=== PATIENT | female | born 1980 | race Caucasian/White ===

== ENCOUNTER 2018-04-10 08:31 | Inpatient (IN) | payer BC ==
[~2018-04-10 08:31] MED LIST: Oxytocin/Normal Saline 30 UNIT/500 ML BAG IV SCH
[2018-04-10] MEDS ORDERED: Methylergonovine 0.2 MG/1 ML Amp IM PRN (09:22)
[2018-04-10] MEDS ORDERED: Acetaminophen 325 MG Tab PO PRN (09:22)
[2018-04-10] MEDS ORDERED: Sodium Chloride 0.9% 10 ML Syringe FLUSH PRN (09:22)
[2018-04-10] MEDS ORDERED: Lidocaine 1% 30 ML SDV INJECT PRN (09:22)
[2018-04-10] MEDS ORDERED: Carboprost Tromethamine 250 MCG/1 ML Amp IM PRN (09:22)
[2018-04-10] MEDS ORDERED: Misoprostol 400 MCG (4 X 100 MCG TAB) RECTAL PRN (09:22)
[2018-04-10] MEDS ORDERED: Tranexamic Acid 1,000 MG in Sodium Chloride 0.9% 100 ML IV PRN (09:22)
[2018-04-10] MEDS ORDERED: Lactated Ringers 500 ML IV ONE (09:22)
[2018-04-10] MEDS ORDERED: Ondansetron 4 MG/2 ML SDV IV PRN (09:22)
[2018-04-10] MEDS ORDERED: Bupivacaine 0.75%/D5W 2 ML Amp ONE (11:39)
[2018-04-10] MEDS ORDERED: fentaNYL 100 MCG/2 ML SDV ONE (11:39)
[2018-04-10] MEDS ORDERED: EPINEPHrine 1 MG/ML SDV ONE (11:39)
[2018-04-10] MEDS: Lactated Ringers 1,000 ML IV SCH ×5 (12:00→21:36)
--- NOTE | 2018-04-10 12:08 | PCM.SN ---
- Free Text/Narrative Note: Intrathecal. Sitting position, sterile prep and drape. 1 % lidocaine w bicarb for skinwheal to L2 L3 interspace. Introducer, 24 ga Pencan x 2. Pos CSF, neg heme, neg parasthesia. 15 mcg pf sufenta, 35 mcg pf fentanyl, 0.1 ml pf 1:1000 pf epi, 0.4 ml pf ns and 6 mg of 0.75% pf bupivacaine injected after CSF aspiration. Pt to L lateral position. Procedure time 1135 to 1210
[2018-04-10] MEDS ORDERED: fentaNYL 100 MCG/2 ML SDV IVPUSH STA (16:42)
[2018-04-10] MEDS ORDERED: ceFAZolin 2 GM in Premix Bag 1 BAG IV ONE (17:00)
[2018-04-10] MEDS ORDERED: Oxytocin/Normal Saline 60 UNIT/1,000 ML BAG ONE (17:44)
[2018-04-10] MEDS ORDERED: Citric Acid/Sodium Citrate Solution 30 ML Cup PO ONE (17:56)
[2018-04-10] MEDS ORDERED: Benzocaine/Menthol 20%-0.5% Spray 56 GM Canister TOP PRN (19:22)
[2018-04-10] MEDS ORDERED: Naloxone 2 MG/2 ML Syringe IVPUSH PRN (19:22)
[2018-04-10] MEDS ORDERED: Measles, Mumps & Rubella Vaccine 0.5 ML SDV SUBCUT ONE (19:22)
[2018-04-10] MEDS ORDERED: ePHEDrine 50 MG/ML SDV IVPUSH PRN (19:22)
[2018-04-10] MEDS ORDERED: diphenhydrAMINE 50 MG/ML SDV IVPUSH PRN (19:22)
[2018-04-10] MEDS ORDERED: Acetaminophen/oxyCODONE 325-5 MG Tab PO PRN (19:22)
[2018-04-10] MEDS ORDERED: Ketorolac 30 MG/ML SDV IVPUSH SCH (19:30)
--- NOTE | 2018-04-10 20:03 | OR ---
DATE: 04/10/2018 PROCEDURE: Primary low-transverse section. SENIOR BI DEVELOPER: Jassi Gilbert MD PREOPERATIVE DIAGNOSES: 1. A 37-year-old, 1, para 0, at 41 and 6/7 weeks' gestation. 2. Induction with unsuccessful vacuum attempt and persistent OP presentation. 3. Advanced maternal age/elderly primigravida. 4. A positive blood type. 5. Group B streptococcus negative. 6. Rubella nonimmune. POSTOPERATIVE DIAGNOSES: 1. A 37-year-old, 1, para 0, at 41 and 6/7 weeks' gestation. 2. Induction with unsuccessful vacuum attempt and persistent OP presentation. 3. Advanced maternal age/elderly primigravida. 4. A positive blood type. 5. Group B streptococcus negative. 6. Rubella nonimmune. 7. Confirming right occiput posterior presentation with a viable male infant, 7 pounds 14 ounces/3570 g, 21 inches long with scores of 8 and 9. FINDINGS: This delightful 37-year-old 1, para 0, presented at 41 and 6/7th weeks' gestation for induction of labor and was found to be in early labor. Artificial rupture of membranes was carried out. She progressed on to an active labor pattern and to complete dilation. Please see her labor notes for details. After pushing, she was found to be in an OP presentation with the baby at a 0 to +1 station, coming down to +2 with pushing. The vacuum assist was attempted, however, was unsuccessful. She was having some intermittent bradycardia. The decision was made to go to section. We had attempted to place a catheter in her bladder and drained urine to help with the descent of the baby's head; however, we were unable to do so. We did note some blood on the catheter tips. The patient was subsequently brought down to the OR and underwent spinal anesthesia with excellent results. She received Ancef 2 g IV and Bicitra orally. This was done preoperatively. She was prepped and draped in the usual sterile manner and a time-out was done in my presence. DESCRIPTION OF PROCEDURE: A surgical marker was used to tomas her intended Pfannenstiel incision site. A scalpel was used to incise the skin and the incision was then carried down to subcutaneous tissue with electrocautery to the fascia, which was incised transversely and extended laterally. The superior and inferior fascial flaps were developed with sharp and blunt dissection. The rectus was identified and divided in the midline. The peritoneum was identified and entered bluntly. The incision was extended until we had excellent visualization of the lower uterine segment. A large Jai retractor was placed without difficulty. A bladder flap was developed with sharp and blunt dissection. A stab incision was made into the lower uterine segment. This was extended bilaterally with blunt dissection. Return of clear amniotic fluid was noted. A loop of cord was noted and cleared out of the incision. The baby was noted to be in ROP position as expected. Using my right hand, I elevated the baby's head up into the incision and was able to flex the vertex elevated, then get it through the incision and extended out to deliver this viable male without difficulty. scores were 8 and 9 as noted. This viable male initially did not have a brisk respiratory effort; therefore, the cord was doubly clamped and cut, and I carried the baby over to the warmer and waiting nursery staff for further drying, stimulation, and resuscitation. Dr. Gilbert and Surgery staff collected a cord blood sample in my absence and removed the placenta. I later inspected it and found it to be complete intact with normal cord insertion and a three-vessel cord. Dr. Gilbert wiped the uterus clean and dry, and removed it from the abdominal cavity. He then grasped the uterine edges with Saenz forceps. The incision looked good and had a very small left-sided lateral extension. This was easily incorporated into our first running locking layer of 0 Vicryl with excellent results. A second imbricating layer of 0 Vicryl was placed for hemostasis and strengthening the incision. Examination showed excellent jewish of normal anatomy and the incision appeared dry. The uterus was placed back into the abdominal cavity and gutters were irrigated, aspirated, and examined and were free of all clots and no sign of active bleeding. The incision was again examined and found to be hemostatic. The retractor was removed. The fascia was then examined. The peritoneum and muscle layers felt together very nicely and were not closed with suture. The fascia was then closed with loop 0 PDS running locking suture with excellent results. Subcutaneous tissue fell together nicely. Electrocautery was used to stop any bleeding. Undermining was used to help the skin edges come together nicely and viry were used to close the skin. The patient tolerated the procedure well. Pitocin is infusing per protocol and the uterus is firm. There were no intraoperative complications. ESTIMATED BLOOD LOSS: 500 mL. Once the baby's head was delivered, the patient did start making urine. She was noted to have over 50 mL of blood. She at first was noted to have hematuria; however, this was clearing by the time the case was ending. The patient was transferred to the recovery room in good condition, and as noted, there were no intraoperative complications. We will continue to follow her closely with postop and routines. [facility] /[id number]
--- NOTE | 2018-04-10 20:32 | HP ---
REASON FOR ADMISSION: Induction of labor. HISTORY OF PRESENT ILLNESS: This delightful 37-year-old, 1, para 0, presented at 41 and 6/7 weeks' gestation for induction of labor for post-term and was actually found to have onset of spontaneous labor and contractions. She was having mild contractions about every 2 to 4 minutes. She had had some mucus discharge, but no vaginal bleeding or fluid leakage. The baby had been active. She had had no nausea or vomiting. She denied any visual changes, headaches, right upper quadrant pain, or increasing edema. Her care is reviewed and had been done at the clinic with me and she has been very compliant with her visits. Her blood type is A positive. Her antibody screen was negative. Baseline hemoglobin was 12.3 with rechecks of 11.7 and 11.3. Serial platelet counts were 275, 273, and 227. Rubella was nonimmune. Hepatitis B surface antigen nonreactive. HIV nonreactive. Chlamydia and GC testing was negative. TSH within normal limits. Hepatitis C antibody nonreactive. Wet prep negative. One-hour glucose screen was normal at 122. Her quad screen was normal. Her group B strep was negative. Her LMP is based on ultrasound dating at 9-1/2 weeks' gestation. This is consistent with her estimated date of conception, her screening ultrasound, and very close to her LMP using her long cycle days in an nicolás on her phone. They do not know the gender of their baby. Her screening ultrasound was within normal limits. They elected not to have any genetic testing other than her quad screen in regard to her advanced maternal age. She has been very relying with her visits. Her post date testing included NSTs weekly and a biophysical profile scoring 10/10 this past week. Her mild anemia was treated with iron supplementation, vitamin C, and iron rich foods. PAST OB HISTORY: Otherwise, noncontributory. PAST MEDICAL HISTORY: Unremarkable. She had a head injury at age 14. Had cervical dysplasia with a prior LEEP. Has a history of migraines without aura. Had an ACL repair in one of her knees. Prior wisdom tooth/oral surgery. ALLERGIES: Tree nuts only. No known drug allergies. MEDICATIONS: 1. vitamins daily. 2. Iron supplementation with vitamin C is noted. FAMILY HISTORY: Positive for cancer, heart attack, irritable bowel syndrome, and ulcerative colitis. Please see her notes for details. SOCIAL HISTORY: Moved here from [place] in October of 2015. She is to her , Ethan. He works at a [employer], and she is from the [facility]. 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 She is a nonsmoker. No history of alcohol abuse. She does drink socially when she is not . She has no history of drug abuse. This is their first child together and they are delighted to be . They are Buddhist. REVIEW OF SYSTEMS: Unremarkable. She has had a Tdap during this and a flu shot. She has a distant history of chickenpox. PHYSICAL EXAMINATION: Vital Signs: Her blood pressure on arrival was mildly elevated, but has subsequently normalized. She has not had a diagnosis of preeclampsia. It was 139/88 with a pulse of 78. She was afebrile. Please see the graphic note for details. HEENT: Negative. Lungs: Clear. Heart: Sounds regular. Abdomen: Gravid. Pelvic: Cervix was 5 cm dilated, 90% effaced, bag of quintero intact. Artificial rupture of membranes was carried out with clear fluid. Extremities: Ankles had only a trace of edema. Her NST on admit showed a baseline heart rate of 125 with good variability present and accelerations present. No worrisome decelerations were seen. Does meet criteria for reactive and reassuring. Does have contractions tracing every 1 to 2 minutes. LABORATORY DATA: Lab work shows a white count of 13.5, hemoglobin of 11.6, platelet count of 163. IMPRESSION: 1. A 37-year-old, 1, para 0, at 41 and 6/7 weeks' gestation, admitted with mild contractions and artificial rupture of membranes for induction of labor post term . 2. Reactive nonstress test, reassuring status. 3. Advanced maternal age/elderly primigravida. 4. A positive blood type. 5. Group B streptococcus negative. 6. Rubella nonimmune. 7. Nonsmoker. PLAN: The plan was to proceed with routine labor admission. This patient did progress on to an active labor program and subsequently had an intrathecal placed. She progressed to complete dilation, was noted to be in an OP position. The patient pushed without much progress and had a maternal exhaustion and was having some intermittent bradycardia. Was subsequently made the decision to go to a vacuum extraction attempt. After review with the patient and staff, we did elect to place the low-profile cup as the baby was in OP position facing slightly to the ROP position with the anterior fontanelle between the 1 and 2 o'clock position. The low-profile cup was easily placed; however, after during the first contraction, it did slip slightly with pulling, therefore, I elected to put a regular vacuum cup on. This cup was uncomfortable with the patient and did pop off. Therefore, I did place the low-profile vacuum again as the vacuum placement had been on for a total of 9 minutes at that time with 1 pop-off. The low-profile was easily placed and we kept it on with multiple contractions; however, we were not making significant progress. We had 1 more pop-off, the bradycardia was noted with slow recovery. Due to the lack of significant progress, caput formation and the baby remaining in a persistent OP position with 2 pop offs noted, I did elect to remove the vacuum and not proceed with further attempt as we were not making significant progress with the vacuum. This baby remains in a persistent OP position with no significant progress with a vacuum assist. Intermittent bradycardias noted. I have discussed this with the patient and her family and we proceed onto primary low-transverse section. I have reviewed the alternatives, risks, and benefits of the procedure. Risks included, but were not limited to, infection and the need of antibiotics, and possible allergic reaction to them and their use and risks, possible hemorrhage and the need for blood transfusion with its inherent risks, the risk of a blood clot, DVT, PE, and the use of NATHALIE stockings, SCDs, early ambulation, etc., catheterization and possible UTI, maternal injury, etc. We will plan on spinal anesthesia with a Pfannenstiel incision. , Ethan, is planning on being there as a support person. We will hope to allow skin to skin in the OR if possible if the baby is doing well. Staff is in agreement with this plan. We will plan on Ancef 2 g IV for preop antibiotic. Further management pending her clinical course. [facility] /[id number]
[2018-04-10] MEDS: Simethicone 80 MG Tab.Chew PO SCH (23:49)
[2018-04-11] MEDS: ceFAZolin 1 GM in Premix Bag 1 BAG IV SCH ×3 (02:24→14:18)
[2018-04-11] MEDS: Ketorolac 30 MG/ML SDV IVPUSH SCH ×3 (02:24→15:10)
[2018-04-11] MEDS: Lactated Ringers 1,000 ML IV SCH (05:33)
[2018-04-11] MEDS: Simethicone 80 MG Tab.Chew PO SCH ×4 (08:45→21:45)
[2018-04-11] MEDS: Docusate Sodium 100 MG Cap PO PRN ×2 (08:45→21:46)
--- NOTE | 2018-04-11 10:06 | PCM.PNPP ---
- General Info Date of Service: 04/11/18 (Post-op day #1) Admission Dx/Problem (Free Text): PLTCS yesterday for unsuccessful vacuum attempt for persistent OP position uncomplicted surgery. doing well spinal resolved. eating ok. see nursing notes. good urine output. hematuria totally cleared. VSS no fever. temp 98.6, RR 18, pulse 55, BP down to 108/60, higher BP readings resolved when company/visitors left last night. exam unremarkable. nursing Subjective Update: feels well. no new concerns. Functional Status: Reports: Pain Controlled, Tolerating Diet Pain Score: 2 - Review of Systems General: Reports: No Symptoms HEENT: Reports: No Symptoms Pulmonary: Reports: No Symptoms Cardiovascular: Reports: No Symptoms Gastrointestinal: Reports: No Symptoms Musculoskeletal: Reports: No Symptoms Skin: Reports: No Symptoms Neurological: Reports: No Symptoms, Other (anesthesia resolved) Psychiatric: Reports: No Symptoms - General Info Date of Service: 04/11/18 - Patient Data Vital Signs - Most Recent: Last Vital Signs Temp 98.6 F 04/11/18 04:00 Pulse 55 L 04/11/18 04:00 Resp 18 04/11/18 04:00 BP 108/60 04/11/18 04:00 Pulse Ox 98 04/10/18 19:35 Weight - Most Recent: 158 lb I&O - Last 24 Hours: Intake & Output 04/10/18 04/11/18 04/11/18 22:59 06:59 14:59 Output Total 2825 Balance -2825 Lab Results - Last 24 Hours: Laboratory Results - last 24 hr 04/11/18 Range/Units 05:50 WBC 22.9 H (5.0-10.0) 10^3/uL RBC 3.27 L (4.2-5.4) 10^6/uL Hgb 9.9 L D (12.0-16.0) g/dL Hct 29.8 L (37.0-47.0) % MCV 91.1 (80-100) fL MCH 30.3 (27.0-34.0) pg MCHC 33.2 (33.0-35.0) g/dL Plt Count 142 L (150-450) 10^3/uL Med Orders - Current: Current Medications Acetaminophen (Tylenol) 650 mg PO Q4H PRN PRN Reason: Pain (Mild 1-3) and fever Benzocaine/Menthol (Dermoplast Pain Relief Dana) 0 gm TOP Q4H PRN PRN Reason: Hemorrhoids Last Admin: 04/11/18 08:45 Dose: 1 spray Carboprost Tromethamine (Hemabate Ds) 250 mcg IM ASDIRECTED PRN PRN Reason: HEMORRHAGE Diphenhydramine HCl (Benadryl) 25 mg IVPUSH Q6H PRN PRN Reason: Itching or Nausea Docusate Sodium (Colace) 100 mg PO Q12H PRN PRN Reason: Constipation Last Admin: 04/11/18 08:45 Dose: 100 mg Ephedrine Sulfate (Ephedrine Sulfate) 5 mg IVPUSH SEECOMMENT PRN PRN Reason: Other Lactated Ringer's (Ringers, Lactated) 1,000 mls @ 125 mls/hr IV ASDIRECTED JOSH Last Admin: 04/11/18 05:33 Dose: 125 mls/hr Oxytocin/Sodium Chloride (Pitocin In Ns 30 Unit/500 Ml) 30 unit in 500 mls @ 2 mls/hr IV TITRATE JOSH; Protocol Last Titration: 04/10/18 21:15 Dose: 0 mls/hr Tranexamic Acid 1,000 mg/ (Sodium Chloride) 110 mls @ 660 mls/hr IV ONETIME PRN PRN Reason: Bleeding Cefazolin Sodium/Dextrose 1 gm (/ Premix) 50 mls @ 100 mls/hr IV Q8HR [facility] Stop: 04/11/18 14:29 Last Infusion: 04/11/18 06:15 Dose: Infused Ibuprofen (Motrin) 800 mg PO Q8H PRN PRN Reason: mild pain or fever Ketorolac Tromethamine (Toradol) 15 mg IVPUSH Q6H [facility] Stop: 04/11/18 15:01 Last Admin: 04/11/18 08:42 Dose: 15 mg Lidocaine HCl (Xylocaine-Mpf 1%) 30 ml INJECT ASDIRECTED PRN PRN Reason: Perineal Repair Last Admin: 04/10/18 17:15 Dose: 30 ml Methylergonovine Maleate (Methergine) 0.2 mg IM ASDIRECTED PRN PRN Reason: Hemorrhage Misoprostol (Cytotec) 800 mcg RECTAL ASDIRECTED PRN PRN Reason: Hemorrhage Naloxone HCl (Narcan) 0.1 mg IVPUSH SEECOMMENT PRN PRN Reason: Respiratory Depression Ondansetron HCl (Zofran) 4 mg IV Q4H PRN PRN Reason: Nausea/Vomiting Last Admin: 04/10/18 11:38 Dose: 4 mg Oxycodone/Acetaminophen (Percocet 325-5 Mg) 1 tab PO Q4H PRN PRN Reason: Pain (moderate 4-6) Oxycodone/Acetaminophen (Percocet 325-5 Mg) 2 tab PO Q4H PRN PRN Reason: Pain (moderate 4-6) Prenat Multivit/Vance/Iron/Folic Ac ( Plus Iron) 1 each PO WITHBREAKFAST JOSH Simethicone (Simethicone) 160 mg PO QID JOSH Last Admin: 04/11/18 08:45 Dose: 160 mg Sodium Chloride (Saline Flush) 10 ml FLUSH ASDIRECTED PRN PRN Reason: Keep Vein Open Discontinued Medications Bupivacaine HCl/Dextrose (Marcaine 0.75% Spinal) Confirm Administered Dose 2 ml .ROUTE .STK-MED ONE Stop: 04/10/18 11:40 Last Admin: 04/10/18 19:29 Dose: Not Given Citric Acid/Sodium Citrate (Bicitra Solution) 30 ml PO ONETIME ONE Stop: 04/10/18 17:57 Last Admin: 04/10/18 21:08 Dose: 30 ml Epinephrine HCl (Adrenalin) Confirm Administered Dose 1 mg .ROUTE .STK-MED ONE Stop: 04/10/18 11:40 Last Admin: 04/10/18 19:30 Dose: Not Given Fentanyl (Sublimaze) Confirm Administered Dose 100 mcg .ROUTE .STK-MED ONE Stop: 04/10/18 11:40 Last Admin: 04/10/18 19:28 Dose: Not Given Fentanyl (Sublimaze) 50 mcg IVPUSH ONETIME STA Stop: 04/10/18 16:43 Last Admin: 04/10/18 16:51 Dose: 50 mcg Lactated Ringer's (Ringers, Lactated) 500 mls @ 500 mls/hr IV .BOLUS ONE Stop: 04/10/18 10:21 Last Admin: 04/10/18 11:30 Dose: 500 mls/hr Cefazolin Sodium/Dextrose (Ancef) Confirm Administered Dose 100 mls @ as directed .ROUTE .STK-MED ONE Stop: 04/10/18 17:45 Oxytocin/Sodium Chloride (Pitocin In Ns 30 Unit/500 Ml) Confirm Administered Dose 60 unit in 1,000 mls @ as directed .ROUTE .STK-MED ONE Stop: 04/10/18 17:45 Cefazolin Sodium/Dextrose 2 gm (/ Premix) 50 mls @ 100 mls/hr IV ONETIME ONE Stop: 04/10/18 17:29 Last Admin: 04/10/18 18:17 Dose: 100 mls/hr Ketorolac Tromethamine (Toradol) 15 mg IVPUSH Q6H JOSH Stop: 04/11/18 07:31 Measles/Mumps/Rubella Vaccine Live (M-M-R Ii Vaccine) 0.5 ml SUBCUT .ONCE ONE Stop: 04/10/18 19:23 Sodium Bicarbonate (Sodium Bicarbonate 4.2%) Confirm Administered Dose 5 meq .ROUTE .STK-MED ONE Stop: 04/10/18 11:41 Last Admin: 04/10/18 19:28 Dose: Not Given Sufentanil Citrate (Sufenta) Confirm Administered Dose 50 mcg .ROUTE .STK-MED ONE Stop: 04/10/18 11:40 Last Admin: 04/10/18 19:28 Dose: Not Given - Infant Interaction Infant Disposition, : Cecil in Room with Family Interaction: Holding Infant Other Infant Interaction: bonding well with both parents Feeding: Breastfed ; Nursed Well Support Person: - Recovery Exam Fundal Tone: Firm Fundal Level: 2 Fingerbreadths Below Umbilicus Fundal Placement: Midline Lochia Amount: Small Lochia Color: Rubra/Red Perineum Description: Edematous Episiotomy/Laceration: None Bladder Status: Indwelling Catheter in Place Urinary Elimination: Indwelling Catheter - Exam General: Alert, Oriented HEENT: Pupils Equal Lungs: Normal Respiratory Effort Extremities: Normal Inspection Skin: Intact Wound/Incisions: Dressing Dry and Intact Psy/Mental Status: Alert, Normal Affect, Normal Mood Physical Findings Comment:: Labs: - Problem List & Annotations (1) Post term at 42 weeks gestation SNOMED Code(s): 017969022 Code(s): O48.0 - POST-TERM ; Z3A.42 - 42 WEEKS GESTATION OF Status: Acute Current Visit: Yes (2) Post term , delivered SNOMED Code(s): 750948727, 945530461 Code(s): O48.0 - POST-TERM Status: Acute Current Visit: Yes (3) delivery delivered SNOMED Code(s): 607037166 Code(s): O82 - ENCOUNTER FOR DELIVERY WITHOUT INDICATION Status: Acute Current Visit: Yes (4) Blood type A+ SNOMED Code(s): 880923250 Code(s): Z67.10 - TYPE A BLOOD, RH POSITIVE Status: Acute Current Visit: Yes (5) Group B Streptococcus not isolated SNOMED Code(s): 075908311 Code(s): PNE4128 - Status: Acute Current Visit: Yes (6) Rubella non-immune status, antepartum SNOMED Code(s): 658644121 Code(s): O99.89 - OTH DISEASES AND CONDITIONS COMPL PREG/CHLDBRTH; Z28.3 - UNDERIMMUNIZATION STATUS Status: Acute Current Visit: Yes (7) AMA (advanced maternal age) primigravida 35+ SNOMED Code(s): 20959259, 229652969 Code(s): O09.519 - SUPERVISION OF ELDERLY PRIMIGRAVIDA, UNSPECIFIED TRIMESTER Status: Acute Current Visit: Yes - Problem List Review Problem List Initiated/Reviewed/Updated: Yes - My Orders Last 24 Hours: My Active Orders 04/10/18 09:22 Patient Status [ADT] Routine Notify Provider Vital Signs OB [RC] ASDIRECTED Up ad Tabitha [RC] ASDIRECTED Vital Signs [RC] 04,08,12,16,20,00,04 Acetaminophen [Tylenol] 650 mg PO Q4H PRN Carboprost Tromethamine [Hemabate DS] 250 mcg IM ASDIRECTED PRN Lidocaine 1% [Xylocaine-MPF 1%] 30 ml INJECT ASDIRECTED PRN Methylergonovine [Methergine] 0.2 mg IM ASDIRECTED PRN Misoprostol [Cytotec] 800 mcg RECTAL ASDIRECTED PRN Ondansetron [Zofran] 4 mg IV Q4H PRN Sodium Chloride 0.9% [Saline Flush] 10 ml FLUSH ASDIRECTED PRN Tranexamic Acid [Cyklokapron] 1,000 mg Sodium Chloride 0.9% [Normal Saline] 100 ml IV ONETIME Saline Lock Insert [OM.PC] Routine Resuscitation Status Routine 04/10/18 09:26 Vaginal Exam [RC] PRN Peripheral IV Insertion Adult [OM.PC] Urgent 04/10/18 09:32 Peripheral IV Care [RC] 08,20 04/10/18 17:56 Schedule Procedure [COMM] Urgent 04/10/18 19:22 Bedrest [RC] ASDIRECTED Communication Order [RC] PER UNIT ROUTINE Communication Order [RC] PER UNIT ROUTINE Communication Order [RC] Per Unit Routine RT Incentive Spirometry [RC] Q2HWA Urinary Catheter Removal [RC] Per Unit Routine Acetaminophen/oxyCODONE [Percocet 325-5 MG] 1 tab PO Q4H PRN Acetaminophen/oxyCODONE [Percocet 325-5 MG] 2 tab PO Q4H PRN Benzocaine/Menthol [Dermoplast Pain Relief Dana] See Dose Instructions TOP Q4H PRN Docusate Sodium [Colace] 100 mg PO Q12H PRN Ibuprofen [Motrin] 800 mg PO Q8H PRN Naloxone [Narcan] 0.1 mg IVPUSH SEECOMMENT PRN diphenhydrAMINE [Benadryl] 25 mg IVPUSH Q6H PRN ePHEDrine [ePHEDrine Sulfate] 5 mg IVPUSH SEECOMMENT PRN Antiembolic Hose [OM.PC] Per Unit Routine Assess Lochia [WOMSER] Per Unit Routine Assess Uterine Involution [WOMSER] Per Unit Routine Breast Pump [WOMSER] Per Unit Routine Ice Therapy [OM.PC] Routine Sequential Compression Device [OM.PC] Per Unit Routine 04/10/18 19:23 Intake and Output [RC] Q8H 04/10/18 19:24 Heat Therapy [OM.PC] Per Unit Routine 04/10/18 19:27 Consult to Certified Physician Assistant [CONS] Routine 04/10/18 19:29 Notify Provider Intake and Out [RC] ASDIRECTED 04/10/18 21:00 Simethicone 160 mg PO QID 04/11/18 02:00 ceFAZolin [Ancef] 1 gm Premix Bag 1 bag IV Q8HR 04/11/18 03:00 Ketorolac [Toradol] 15 mg IVPUSH Q6H 04/12/18 08:00 Vit with Ca/FA/Iron [ Plus Iron] 1 each PO WITHBREAKFAST 04/13/18 05:11 CBC W/O DIFF,HEMOGRAM [HEME] AM - Plan Plan:: Plan: continue current PP/PO cares and orders. finish Ancef today CBC Friday watch VS MMR likely home Friday. Quigley out today. ambulate. all questions answered. [facility]mb
[2018-04-11] MEDS: Acetaminophen/oxyCODONE 325-5 MG Tab PO PRN ×2 (17:20→21:46)
[2018-04-11] MEDS: Ibuprofen 800 MG Tab PO PRN (23:00)
[2018-04-12] MEDS: Acetaminophen/oxyCODONE 325-5 MG Tab PO PRN ×6 (01:49→22:52)
[2018-04-12] MEDS ORDERED: SUMATRIPTAN 100 MG PO ONE (05:57)
[2018-04-12] MEDS: Ibuprofen 800 MG Tab PO PRN ×2 (07:13→18:31)
[2018-04-12] MEDS: Simethicone 80 MG Tab.Chew PO SCH ×4 (09:28→20:39)
[2018-04-12] MEDS: Prenatal Multivitamin with Calcium/Folic Acid/Iron Tab PO SCH (09:28)
[2018-04-12] MEDS: Docusate Sodium 100 MG Cap PO PRN ×2 (09:29→20:39)
--- NOTE | 2018-04-12 10:59 | PCM.PNPP ---
- General Info Date of Service: 04/12/18 (Post-op day #2) Admission Dx/Problem (Free Text): [facility] yesterday for unsuccessful vacuum attempt for persistent OP position uncomplicted surgery. doing well spinal resolved. eating ok. see nursing notes. good urine output. hematuria totally cleared. VSS no fever. temp 98.6, RR 18, pulse 55, BP down to 108/60, higher BP readings resolved when company/visitors left last night. exam unremarkable. nursing Subjective Update: feels well, MUCH better today. no new concerns. yee out, voiding very well migraine last night, resolved with percocet. nursing well. passing gas. No BM yet. Functional Status: Reports: Pain Controlled, Tolerating Diet, Ambulating, Urinating - Review of Systems General: Reports: No Symptoms HEENT: Reports: No Symptoms Pulmonary: Reports: No Symptoms Cardiovascular: Reports: No Symptoms Gastrointestinal: Reports: Flatus, Other (bloating) Genitourinary: Reports: No Symptoms Musculoskeletal: Reports: No Symptoms Skin: Reports: No Symptoms Neurological: Reports: No Symptoms Psychiatric: Reports: No Symptoms - General Info Date of Service: 04/12/18 - Patient Data Vital Signs - Most Recent: Last Vital Signs Temp 98.4 F 04/12/18 08:00 Pulse 73 04/12/18 08:00 Resp 16 04/12/18 08:00 BP 143/71 H 04/12/18 08:00 Pulse Ox 100 04/12/18 08:00 Weight - Most Recent: 158 lb I&O - Last 24 Hours: Intake & Output 04/11/18 04/12/18 04/12/18 22:59 06:59 14:59 Intake Total 1500 Output Total 2100 3000 Balance -2100 -1500 Med Orders - Current: Current Medications Acetaminophen (Tylenol) 650 mg PO Q4H PRN PRN Reason: Pain (Mild 1-3) and fever Benzocaine/Menthol (Dermoplast Pain Relief [place]) 0 gm TOP Q4H PRN PRN Reason: Hemorrhoids Last Admin: 04/11/18 08:45 Dose: 1 spray Carboprost Tromethamine (Hemabate Ds) 250 mcg IM ASDIRECTED PRN PRN Reason: HEMORRHAGE Diphenhydramine HCl (Benadryl) 25 mg IVPUSH Q6H PRN PRN Reason: Itching or Nausea Docusate Sodium (Colace) 100 mg PO Q12H PRN PRN Reason: Constipation Last Admin: 04/12/18 09:29 Dose: 100 mg Ephedrine Sulfate (Ephedrine Sulfate) 5 mg IVPUSH SEECOMMENT PRN PRN Reason: Other Lactated Ringer's (Ringers, Lactated) 1,000 mls @ 125 mls/hr IV ASDIRECTED JOSH Last Admin: 04/11/18 05:33 Dose: 125 mls/hr Oxytocin/Sodium Chloride (Pitocin In Ns 30 Unit/500 Ml) 30 unit in 500 mls @ 2 mls/hr IV TITRATE JOSH; Protocol Last Titration: 04/10/18 21:15 Dose: 0 mls/hr Tranexamic Acid 1,000 mg/ (Sodium Chloride) 110 mls @ 660 mls/hr IV ONETIME PRN PRN Reason: Bleeding Ibuprofen (Motrin) 800 mg PO Q8H PRN PRN Reason: mild pain or fever Last Admin: 04/12/18 07:13 Dose: 800 mg Lidocaine HCl (Xylocaine-Mpf 1%) 30 ml INJECT ASDIRECTED PRN PRN Reason: Perineal Repair Last Admin: 04/10/18 17:15 Dose: 30 ml Methylergonovine Maleate (Methergine) 0.2 mg IM ASDIRECTED PRN PRN Reason: Hemorrhage Misoprostol (Cytotec) 800 mcg RECTAL ASDIRECTED PRN PRN Reason: Hemorrhage Naloxone HCl (Narcan) 0.1 mg IVPUSH SEECOMMENT PRN PRN Reason: Respiratory Depression Ondansetron HCl (Zofran) 4 mg IV Q4H PRN PRN Reason: Nausea/Vomiting Last Admin: 04/10/18 11:38 Dose: 4 mg Oxycodone/Acetaminophen (Percocet 325-5 Mg) 1 tab PO Q4H PRN PRN Reason: Pain (moderate 4-6) Oxycodone/Acetaminophen (Percocet 325-5 Mg) 2 tab PO Q4H PRN PRN Reason: Pain (moderate 4-6) Last Admin: 04/12/18 06:28 Dose: 2 tab Prenat Multivit/[place]/Iron/Folic Ac ( Plus Iron) 1 each PO WITHBREAKFAST JOSH Last Admin: 04/12/18 09:28 Dose: 1 each Simethicone (Simethicone) 160 mg PO QID JOSH Last Admin: 04/12/18 09:28 Dose: 160 mg Sodium Chloride (Saline Flush) 10 ml FLUSH ASDIRECTED PRN PRN Reason: Keep Vein Open Discontinued Medications Bupivacaine HCl/Dextrose (Marcaine 0.75% Spinal) Confirm Administered Dose 2 ml .ROUTE .STK-MED ONE Stop: 04/10/18 11:40 Last Admin: 04/10/18 19:29 Dose: Not Given Citric Acid/Sodium Citrate (Bicitra Solution) 30 ml PO ONETIME ONE Stop: 04/10/18 17:57 Last Admin: 04/10/18 21:08 Dose: 30 ml Epinephrine HCl (Adrenalin) Confirm Administered Dose 1 mg .ROUTE .STK-MED ONE Stop: 04/10/18 11:40 Last Admin: 04/10/18 19:30 Dose: Not Given Fentanyl (Sublimaze) Confirm Administered Dose 100 mcg .ROUTE .STK-MED ONE Stop: 04/10/18 11:40 Last Admin: 04/10/18 19:28 Dose: Not Given Fentanyl (Sublimaze) 50 mcg IVPUSH ONETIME STA Stop: 04/10/18 16:43 Last Admin: 04/10/18 16:51 Dose: 50 mcg Lactated Ringer's (Ringers, Lactated) 500 mls @ 500 mls/hr IV .BOLUS ONE Stop: 04/10/18 10:21 Last Admin: 04/10/18 11:30 Dose: 500 mls/hr Cefazolin Sodium/Dextrose (Ancef) Confirm Administered Dose 100 mls @ as directed .ROUTE .STK-MED ONE Stop: 04/10/18 17:45 Oxytocin/Sodium Chloride (Pitocin In Ns 30 Unit/500 Ml) Confirm Administered Dose 60 unit in 1,000 mls @ as directed .ROUTE .STK-MED ONE Stop: 04/10/18 17:45 Cefazolin Sodium/Dextrose 2 gm (/ Premix) 50 mls @ 100 mls/hr IV ONETIME ONE Stop: 04/10/18 17:29 Last Admin: 04/10/18 18:17 Dose: 100 mls/hr Cefazolin Sodium/Dextrose 1 gm (/ Premix) 50 mls @ 100 mls/hr IV Q8HR JOSH Stop: 04/11/18 14:29 Last Admin: 04/11/18 14:18 Dose: 100 mls/hr Ketorolac Tromethamine (Toradol) 15 mg IVPUSH Q6H [facility] Stop: 04/11/18 07:31 Last Admin: 04/11/18 17:35 Dose: Not Given Ketorolac Tromethamine (Toradol) 15 mg IVPUSH Q6H JOSH Stop: 04/11/18 15:01 Last Admin: 04/11/18 15:10 Dose: 15 mg Measles/Mumps/Rubella Vaccine Live (M-M-R Ii Vaccine) 0.5 ml SUBCUT .ONCE ONE Stop: 04/10/18 19:23 Last Admin: 04/11/18 17:15 Dose: 0.5 ml Patient's Own Medication 1 Each Sumatriptan 100 Mg Tab 0.25 each PO Q1H ONE Stop: 04/12/18 05:58 Sodium Bicarbonate (Sodium Bicarbonate 4.2%) Confirm Administered Dose 5 meq .ROUTE .STK-MED ONE Stop: 04/10/18 11:41 Last Admin: 04/10/18 19:28 Dose: Not Given Sufentanil Citrate (Sufenta) Confirm Administered Dose 50 mcg .ROUTE .STK-MED ONE Stop: 04/10/18 11:40 Last Admin: 04/10/18 19:28 Dose: Not Given - Interaction Disposition, : in Room with Family Infant Interaction: Holding Infant Other Interaction: bonding well with both parents Infant Feeding: Breastfed Infant; Nursed Well Support Person: , Other (see below) (grandparents from both sides in frequently) - Recovery Exam Fundal Tone: Firm Fundal Level: 2 Fingerbreadths Above Umbilicus Fundal Placement: Midline Lochia Amount: Small Lochia Color: Rubra/Red Perineum Description: Intact, Minimal Bruising/Swelling Episiotomy/Laceration: None Bladder Status: Voiding Urinary Elimination: Voided Other Urinary Elimination, : due to void - Exam General: Alert, Oriented HEENT: Pupils Equal Neck: Supple Lungs: Normal Respiratory Effort Cardiovascular: Regular Rate GI/Abdominal Exam: Soft, Distended (slight,mild) Extremities: Normal Inspection, Non-Tender, No Pedal Edema Skin: Warm, Dry, Intact Wound/Incisions: Dressing Dry and Intact Neurological: No New Focal Deficit Psy/Mental Status: Alert, Normal Affect, Normal Mood - Problem List & Annotations (1) Post term at 42 weeks gestation SNOMED Code(s): 795480589 Code(s): O48.0 - POST-TERM ; Z3A.42 - 42 WEEKS GESTATION OF Status: Acute Current Visit: Yes (2) Post term , delivered SNOMED Code(s): 196569062, 663338229 Code(s): O48.0 - POST-TERM Status: Acute Current Visit: Yes (3) delivery delivered SNOMED Code(s): 127133145 Code(s): O82 - ENCOUNTER FOR DELIVERY WITHOUT INDICATION Status: Acute Current Visit: Yes (4) Blood type A+ SNOMED Code(s): 319909537 Code(s): Z67.10 - TYPE A BLOOD, RH POSITIVE Status: Acute Current Visit: Yes (5) Group B Streptococcus not isolated SNOMED Code(s): 295373890 Code(s): KLM6099 - Status: Acute Current Visit: Yes (6) Rubella non-immune status, antepartum SNOMED Code(s): 976426401 Code(s): O99.89 - OTH DISEASES AND CONDITIONS COMPL PREG/CHLDBRTH; Z28.3 - UNDERIMMUNIZATION STATUS Status: Acute Current Visit: Yes (7) AMA (advanced maternal age) primigravida 35+ SNOMED Code(s): 59807470, 902577950 Code(s): O09.519 - SUPERVISION OF ELDERLY PRIMIGRAVIDA, UNSPECIFIED TRIMESTER Status: Acute Current Visit: Yes - Problem List Review Problem List Initiated/Reviewed/Updated: Yes - My Orders Last 24 Hours: My Active Orders 04/11/18 22:07 Communication Order [RC] 0700 04/12/18 08:00 Vit with Ca/FA/Iron [ Plus Iron] 1 each PO WITHBREAKFAST 04/13/18 05:11 CBC W/O DIFF,HEMOGRAM [HEME] AM - Plan Plan:: Plan: 04-11-18 continue current PP/PO cares and orders. finish Ancef today CBC Friday watch VS MMR likely home Friday. Yee out today. ambulate. all questions answered. b 04-12-18 POD #2 Doing well. continue current cares. Ancef done. yee out. CBC in a.m. likely home tomorrow. All questions answered. hmb
[2018-04-13] MEDS: Acetaminophen/oxyCODONE 325-5 MG Tab PO PRN ×2 (04:48→09:15)
[2018-04-13] MEDS: Ibuprofen 800 MG Tab PO PRN (04:49)
[2018-04-13] MEDS: Prenatal Multivitamin with Calcium/Folic Acid/Iron Tab PO SCH (08:11)
[2018-04-13] MEDS: Docusate Sodium 100 MG Cap PO PRN (09:17)
[2018-04-13] MEDS: Simethicone 80 MG Tab.Chew PO SCH (09:17)
--- NOTE | 2018-04-13 09:54 | PCM.DCSUM1 ---
Discharge Summary - Hospital Course Free Text/Narrative:: Ana delivered by [facility]TCS for unsuccessful vacuum delivery for POP position viable male 7lb 14oz. no complications. see delivery note/op-note for details. Has remained afebrile with VSS spinal anesthesia resolved voiding, ambulating, stooling, eating well. home today, POD #3 follow up one week and sooner prn. SALAZAR/migraines discussed. flow decreasing. cramping decreasing nursing and rooming in. all questions answered. Diagnosis: Stroke: No - Discharge Data Discharge Date: 04/13/18 Discharge Disposition: Home, Self-Care 01 Condition: Good - Discharge Diagnosis/Problem(s) (1) Post term at 42 weeks gestation SNOMED Code(s): 881989555 ICD Code: O48.0 - POST-TERM ; Z3A.42 - 42 WEEKS GESTATION OF Status: Acute Current Visit: Yes (2) Post term , delivered SNOMED Code(s): 819645013, 878347699 ICD Code: O48.0 - POST-TERM Status: Acute Current Visit: Yes (3) delivery delivered SNOMED Code(s): 841763183 ICD Code: O82 - ENCOUNTER FOR DELIVERY WITHOUT INDICATION Status: Acute Current Visit: Yes (4) Blood type A+ SNOMED Code(s): 781166648 ICD Code: Z67.10 - TYPE A BLOOD, RH POSITIVE Status: Acute Current Visit : Yes (5) Group B Streptococcus not isolated SNOMED Code(s): 608029865 ICD Code: [id number] - Status: Acute Current Visit: Yes (6) Rubella non-immune status, antepartum SNOMED Code(s): 378165005 ICD Code: O99.89 - OTH DISEASES AND CONDITIONS COMPL PREG/CHLDBRTH; Z28.3 - UNDERIMMUNIZATION STATUS Status: Acute Current Visit: Yes (7) AMA (advanced maternal age) primigravida 35+ SNOMED Code(s): 41288262, 289107509 ICD Code: O09.519 - SUPERVISION OF ELDERLY PRIMIGRAVIDA, UNSPECIFIED TRIMESTER Status: Acute Current Visit: Yes - Patient Summary/Data Consults: Consultations 04/10/18 19:27 Consult to Digital Community Manager [CONS] Routine Labs Pending at D/C: hgb 10.1, WBC down to 10.1, PLT 171 - Patient Instructions Diet: Regular Diet as Tolerated Driving: Do Not Drive Showering/Bathing: May Shower - Discharge Plan Home Medications: Home Meds #103/Iron Fumarate/Fa [ ] 1 tab PO DAILY 04/01/18 [ History] SUMAtriptan 100 mg PO Q4H PRN 04/12/18 [History] Patient Handouts: Home Care Instructions for Mom, Care After Delivery - Discharge Summary/Plan Comment DC Time >30 min.: No Discharge Summary/Plan Comment: I will send her percocet nd imitrex in by [employer] to [facility] at the clinic. b - General Info Date of Service: 04/13/18 (discharge summary) Admission Dx/Problem (Free Text: [facility] yesterday for unsuccessful vacuum attempt for persistent OP position uncomplicted surgery. doing well spinal resolved. eating ok. see nursing notes. good urine output. hematuria totally cleared. VSS no fever. temp 98.6, RR 18, pulse 55, BP down to 108/60, higher BP readings resolved when company/visitors left last night. exam unremarkable. nursing Subjective Update: feels well, MUCH better today. no new concerns. yee out, voiding very well migraine last night, resolved with percocet. nursing well. passing gas. No BM yet. Functional Status: Reports: Pain Controlled - Review of Systems General: Reports: No Symptoms HEENT: Reports: No Symptoms Pulmonary: Reports: No Symptoms Cardiovascular: Reports: No Symptoms Gastrointestinal: Reports: No Symptoms Genitourinary: Reports: No Symptoms Musculoskeletal: Reports: No Symptoms Skin: Reports: No Symptoms Neurological: Reports: No Symptoms Psychiatric: Reports: No Symptoms - Patient Data Vitals - Most Recent: Last Vital Signs Temp 98.2 F 04/13/18 08:00 Pulse 76 04/13/18 08:00 Resp 16 04/13/18 08:00 BP 135/82 04/13/18 08:00 Pulse Ox 100 04/13/18 08:00 Weight - Most Recent: 158 lb I&O - Last 24 hours: Intake & Output 04/12/18 04/13/18 04/13/18 22:59 06:59 14:59 Intake Total 1020 510 Balance 1020 510 Lab Results - Last 24 hrs: Laboratory Results - last 24 hr 04/13/18 Range/Units 06:10 WBC 14.5 H (5.0-10.0) 10^3/uL RBC 3.29 L (4.2-5.4) 10^6/uL Hgb 10.1 L (12.0-16.0) g/dL Hct 30.3 L (37.0-47.0) % MCV 92.1 (80-100) fL MCH 30.7 (27.0-34.0) pg MCHC 33.3 (33.0-35.0) g/dL Plt Count 171 (150-450) 10^3/uL Med Orders - Current: Current Medications Acetaminophen (Tylenol) 650 mg PO Q4H PRN PRN Reason: Pain (Mild 1-3) and fever Benzocaine/Menthol (Dermoplast Pain Relief [place]) 0 gm TOP Q4H PRN PRN Reason: Hemorrhoids Last Admin: 04/11/18 08:45 Dose: 1 spray Carboprost Tromethamine (Hemabate Ds) 250 mcg IM ASDIRECTED PRN PRN Reason: HEMORRHAGE Diphenhydramine HCl (Benadryl) 25 mg IVPUSH Q6H PRN PRN Reason: Itching or Nausea Docusate Sodium (Colace) 100 mg PO Q12H PRN PRN Reason: Constipation Last Admin: 04/13/18 09:17 Dose: 100 mg Ephedrine Sulfate (Ephedrine Sulfate) 5 mg IVPUSH SEECOMMENT PRN PRN Reason: Other Lactated Ringer's (Ringers, Lactated) 1,000 mls @ 125 mls/hr IV ASDIRECTED JOSH Last Admin: 04/11/18 05:33 Dose: 125 mls/hr Oxytocin/Sodium Chloride (Pitocin In Ns 30 Unit/500 Ml) 30 unit in 500 mls @ 2 mls/hr IV TITRATE JOSH; Protocol Last Titration: 04/10/18 21:15 Dose: 0 mls/hr Tranexamic Acid 1,000 mg/ (Sodium Chloride) 110 mls @ 660 mls/hr IV ONETIME PRN PRN Reason: Bleeding Ibuprofen (Motrin) 800 mg PO Q8H PRN PRN Reason: mild pain or fever Last Admin: 04/13/18 04:49 Dose: 800 mg Lidocaine HCl (Xylocaine-Mpf 1%) 30 ml INJECT ASDIRECTED PRN PRN Reason: Perineal Repair Last Admin: 04/10/18 17:15 Dose: 30 ml Methylergonovine Maleate (Methergine) 0.2 mg IM ASDIRECTED PRN PRN Reason: Hemorrhage Misoprostol (Cytotec) 800 mcg RECTAL ASDIRECTED PRN PRN Reason: Hemorrhage Naloxone HCl (Narcan) 0.1 mg IVPUSH SEECOMMENT PRN PRN Reason: Respiratory Depression Ondansetron HCl (Zofran) 4 mg IV Q4H PRN PRN Reason: Nausea/Vomiting Last Admin: 04/10/18 11:38 Dose: 4 mg Oxycodone/Acetaminophen (Percocet 325-5 Mg) 1 tab PO Q4H PRN PRN Reason: Pain (moderate 4-6) Oxycodone/Acetaminophen (Percocet 325-5 Mg) 2 tab PO Q4H PRN PRN Reason: Pain (moderate 4-6) Last Admin: 04/13/18 09:15 Dose: 2 tab Prenat Multivit/[place]/Iron/Folic Ac ( Plus Iron) 1 each PO WITHBREAKFAST [facility] Last Admin: 04/13/18 08:11 Dose: 1 each Simethicone (Simethicone) 160 mg PO QID [facility] Last Admin: 04/13/18 09:17 Dose: 160 mg Sodium Chloride (Saline Flush) 10 ml FLUSH ASDIRECTED PRN PRN Reason: Keep Vein Open Discontinued Medications Bupivacaine HCl/Dextrose (Marcaine 0.75% Spinal) Confirm Administered Dose 2 ml .ROUTE .STK-MED ONE Stop: 04/10/18 11:40 Last Admin: 04/10/18 19:29 Dose: Not Given Citric Acid/Sodium Citrate (Bicitra Solution) 30 ml PO ONETIME ONE Stop: 04/10/18 17:57 Last Admin: 04/10/18 21:08 Dose: 30 ml Epinephrine HCl (Adrenalin) Confirm Administered Dose 1 mg .ROUTE .STK-MED ONE Stop: 04/10/18 11:40 Last Admin: 04/10/18 19:30 Dose: Not Given Fentanyl (Sublimaze) Confirm Administered Dose 100 mcg .ROUTE .STK-MED ONE Stop: 04/10/18 11:40 Last Admin: 04/10/18 19:28 Dose: Not Given Fentanyl (Sublimaze) 50 mcg IVPUSH ONETIME STA Stop: 04/10/18 16:43 Last Admin: 04/10/18 16:51 Dose: 50 mcg Lactated Ringer's (Ringers, Lactated) 500 mls @ 500 mls/hr IV .BOLUS ONE Stop: 04/10/18 10:21 Last Admin: 04/10/18 11:30 Dose: 500 mls/hr Cefazolin Sodium/Dextrose (Ancef) Confirm Administered Dose 100 mls @ as directed .ROUTE .STK-MED ONE Stop: 04/10/18 17:45 Oxytocin/Sodium Chloride (Pitocin In Ns 30 Unit/500 Ml) Confirm Administered Dose 60 unit in 1,000 mls @ as directed .ROUTE .STK-MED ONE Stop: 04/10/18 17:45 Cefazolin Sodium/Dextrose 2 gm (/ Premix) 50 mls @ 100 mls/hr IV ONETIME ONE Stop: 04/10/18 17:29 Last Admin: 04/10/18 18:17 Dose: 100 mls/hr Cefazolin Sodium/Dextrose 1 gm (/ Premix) 50 mls @ 100 mls/hr IV Q8HR JOSH Stop: 04/11/18 14:29 Last Admin: 04/11/18 14:18 Dose: 100 mls/hr Ketorolac Tromethamine (Toradol) 15 mg IVPUSH Q6H JOSH Stop: 04/11/18 07:31 Last Admin: 04/11/18 17:35 Dose: Not Given Ketorolac Tromethamine (Toradol) 15 mg IVPUSH Q6H JOSH Stop: 04/11/18 15:01 Last Admin: 04/11/18 15:10 Dose: 15 mg Measles/Mumps/Rubella Vaccine Live (M-M-R Ii Vaccine) 0.5 ml SUBCUT .ONCE ONE Stop: 04/10/18 19:23 Last Admin: 04/11/18 17:15 Dose: 0.5 ml Patient's Own Medication 1 Each Sumatriptan 100 Mg Tab 0.25 each PO Q1H ONE Stop: 04/12/18 05:58 Last Admin: 04/12/18 10:59 Dose: Not Given Sodium Bicarbonate (Sodium Bicarbonate 4.2%) Confirm Administered Dose 5 meq .ROUTE .STK-MED ONE Stop: 04/10/18 11:41 Last Admin: 04/10/18 19:28 Dose: Not Given Sufentanil Citrate (Sufenta) Confirm Administered Dose 50 mcg .ROUTE .[facility] ONE Stop: 04/10/18 11:40 Last Admin: 04/10/18 19:28 Dose: Not Given
[2018-04-13] MEDS ORDERED: Ketorolac 30 MG/ML SDV IVPUSH ONE (12:44)
[2018-04-13] MEDS ORDERED: Bupivacaine 0.75%/D5W 2 ML Amp INJECT ONE ×2 (12:44)
[2018-04-13] MEDS ORDERED: Morphine PF 1 MG/ML Amp ONE (12:44)
[2018-04-13] MEDS ORDERED: Dexamethasone 4 MG/ML SDV IV ONE (12:44)
[2018-04-13] MEDS ORDERED: Oxytocin/Normal Saline 30 UNIT/500 ML BAG IV ONE (12:44)
[2018-04-13] MEDS ORDERED: Ondansetron 4 MG/2 ML SDV IV ONE (12:44)
[2018-04-13] MEDS ORDERED: fentaNYL 100 MCG/2 ML SDV ITHECAL ONE (12:44)
== END 2018-04-13 12:45 | disposition home or self-care (01) | DRG 540 ==
LOC: DL.OBCHECK 08:31 → DL.OB 09:22 → OBSVTOIN 18:32
PROVIDERS: ADMIT Family Medicine; ATTEND Family Medicine
PROC: 10D00Z1 Extraction of Products of Conception, Low, Open Approach (ICD-10-PCS; principal; 2018-04-10)
PROC: 3E0S3GC Introduction of Other Therapeutic Substance into Epidural Space, Percutaneous Approach (ICD-10-PCS; 2018-04-10)
DX: O76 Abnormality in fetal heart rate and rhythm complicating labor and delivery (principal); O32.8XX0 Maternal care for other malpresentation of fetus, not applicable or unspecified; O48.0 Post-term pregnancy; Z3A.42 42 weeks gestation of pregnancy; Z37.0 Single live birth
CPT/HCPCS: 36415; 51701; 51702; 85027; 90707; A9270-GY; J0690; J1100; J1885; J2274; J2405; J2590; J3010; J7120